=== PATIENT | male | born 1950 | race Two or more races ===

== ENCOUNTER 2020-07-02 19:14 | Inpatient (IN) | payer OTHER ==
[~2020-07-02] VITALS: Ht 162.6 cm; Wt 78.9 kg
--- NOTE | 2020-07-02 19:42 | NUR ---
patient came in to the er c/o chest pain and throbing head ache. On room air, breathing evenly and unlabored. connected to the monitor and pulse ox. kept comfortable, will continue to monitor accordingly.
--- NOTE | 2020-07-02 19:50 | NUR ---
IV access initiated and blood drawned and sent to lab
[2020-07-02 19:59] LABS: BASOPHILS % (AUTO) 0.5 % (0.0-2.0); EOSINOPHILS % (AUTO) 1.5 % (0.0-6.0); HEMATOCRIT 48 % (39-51); HEMOGLOBIN 15.7 g/dL (13.5-17.5); LYMPHOCYTES # (AUTO) 3.3 /CMM (0.8-4.8); LYMPHOCYTES % (AUTO) 37.7 % (20.0-44.0); MEAN CORPUSCULAR HGB CONC 33 g/dl (31.0-36.0); MEAN CORPUSCULAR VOLUME 86 fL (80-96); MONOCYTES # (AUTO) 0.8 /CMM (0.1-1.30); MONOCYTES % (AUTO) 9.2 % (2.0-12.0); NEUTROPHILS # (AUTO) 4.5 /CMM (1.8-8.9); NEUTROPHILS % (AUTO) 51.1 % (43.0-81.0); PLATELET COUNT (AUTO) 313 /CMM (150-450); WHITE BLOOD COUNT (AUTO) 8.8 K/uL (4.3-11.0)
[2020-07-02 20:15] LABS: CALCIUM, SERUM 8.8 mg/dL (8.5-10.1); CARBON DIOXIDE 29 mmol/L (21-32); CHLORIDE 102 mmol/L (98-107); CREATININE 0.9 mg/dL (0.6-1.3); GLUCOSE 140 mg/dL (74-106); POTASSIUM 3.7 mmol/L (3.5-5.1); SODIUM SERUM 142 mmol/L (136-145); UREA NITROGEN, BLOOD 18 mg/dL (7-18)
[2020-07-02] MEDS ORDERED: NITROGLYCERIN PACKET 1 GM PACKET TOP ONE (21:30)
[2020-07-02] MEDS ORDERED: ASPIRIN 325 MG TABLET PO ONE (21:30)
[2020-07-02] MEDS ORDERED: *INSULIN REGULAR(HUMULIN R)HUM 100 UNIT/ML VIAL SQ PRN (22:00)
[2020-07-02] MEDS ORDERED: MAGNESIUM HYDROXIDE 30 ML UDC PO PRN (22:00)
[2020-07-02] MEDS ORDERED: INSULIN REGULAR, HUMAN 100 UNIT/ML 3 ML VIAL SQ PRN (22:00)
[2020-07-02] MEDS ORDERED: MAG HYDROX/AL HYDROX/SIMETH 30 ML UDC PO PRN (22:00)
[2020-07-02] MEDS ORDERED: Z GUARD REMEDY 2 OZ OINT TP PRN (22:00)
[2020-07-02] MEDS ORDERED: DEXTROSE 50%-WATER 50 ML DISP.SYRIN IV PRN (22:00)
[2020-07-02] MEDS ORDERED: ACETAMINOPHEN 325 MG TABLET PO PRN (22:00)
[2020-07-02] MEDS ORDERED: MORPHINE SULFATE INJ 2 MG/ML DISP.SYRIN IV PRN (22:00)
[2020-07-02] MEDS ORDERED: ONDANSETRON HCL/PF 4 MG/2 ML VIAL IVP PRN (22:00)
[2020-07-02] MEDS ORDERED: HYDROCODONE/APAP 5/325MG TABLET PO PRN (22:00)
--- NOTE | 2020-07-02 22:08 | NUR ---
covid swab sent
[2020-07-02] MEDS ORDERED: NITROGLYCERIN PACKET 1 GM PACKET ONE (22:10)
[2020-07-02] MEDS ORDERED: ASPIRIN 325 MG TABLET ONE (22:10)
--- NOTE | 2020-07-02 22:46 | NUR ---
REPORT GIVEN TO ALEKSANDRA FOR VALERIA
[2020-07-02 23:30] VITALS: BP 141/79
--- NOTE | 2020-07-02 23:30 | NUR ---
TELERN RECEIVED A 69 Y/O ITALIAN SPEAKING MALE FROM ER VIA GURNEY WITH CC OF CHEST PAIN FOR 9 DAYS AND SOB FOR 6 DAYS WITH KONG AND N/V. CHEST PAIN FREE UPON ARRIVAL . V/S STABE. NO SOB 95% ON RA. STATED DOES NOT NEED TO HAVE OXYGEN. FORMING ROLL OPERATOR AT BEDSIDE. ABLE TO PROVIDE INFORMATION EXCEPT MEDICATIONS HE IS TAKING AT HOME. WILL HAVE TO FOLLOW UP IN AM MED LISTS FROM . ORIENTED TO ROOM FACILITIES. KEPT NPO FOR NOW. PULP MILL SUPERVISOR TO SEE PATIENT IN AM. ADMITTING ORDERS CARRIED OUT. CONTINUED.
--- NOTE | 2020-07-02 23:36 | NUR ---
PT TRANSPORTED TO 3RD FLOOR
[2020-07-03] MEDS: BLOOD SUGAR DIAGNOSTIC 1 EACH STRIP VI SCH ×5 (00:38→22:23)
[2020-07-03] MEDS: ENOXAPARIN SODIUM 40 MG/0.4 ML DISP.SYRIN SQ SCH ×2 (00:39→22:21)
--- NOTE | 2020-07-03 01:30 | NUR ---
TELERN MOVED TO ROOM 319 .
--- NOTE | 2020-07-03 04:15 | NUR ---
TELERN VERBALIZES HEADACHE, NORCO 1 TAB PO ADMINISTERED. BEDREST EMPHASIZED, SAFETY PRECAUTIONS INSTRUCTED, APPEARS TO UNDERSTAND CALL LIGHT WITHIN REACH
--- NOTE | 2020-07-03 05:06 | NUR ---
TELERN ASLEEP AT THIS TIME,PROVIDED QUIET ENVI. CLOSELY WATCHED. REMAINS SR N THE MONITOR
[2020-07-03 06:43] LABS: BASOPHILS # (AUTO) 0.1 /CMM (0.0-0.2); BASOPHILS % (AUTO) 0.8 % (0.0-2.0); EOSINOPHILS % (AUTO) 6.2 % (0.0-6.0); HEMATOCRIT 47 % (39-51); HEMOGLOBIN 15.6 g/dL (13.5-17.5); LYMPHOCYTES # (AUTO) 2.1 /CMM (0.8-4.8); LYMPHOCYTES % (AUTO) 27.4 % (20.0-44.0); MEAN CORPUSCULAR HGB CONC 33 g/dl (31.0-36.0); MEAN CORPUSCULAR VOLUME 93 fL (80-96); MONOCYTES # (AUTO) 0.7 /CMM (0.1-1.30); MONOCYTES % (AUTO) 9.5 % (2.0-12.0); NEUTROPHILS # (AUTO) 4.3 /CMM (1.8-8.9); NEUTROPHILS % (AUTO) 56.1 % (43.0-81.0); PLATELET COUNT (AUTO) 241 /CMM (150-450); RED BLOOD CELL COUNT(AUTO) 5.05 MIL/uL (4.5-6.0); WHITE BLOOD COUNT (AUTO) 7.7 K/uL (4.3-11.0)
[2020-07-03 07:01] LABS: CALCIUM, SERUM 8.8 mg/dL (8.5-10.1); CREATININE 0.9 mg/dL (0.6-1.3); PHOSPHORUS 4.5 mg/dL (2.5-4.9); POTASSIUM 3.9 mmol/L (3.5-5.1)
--- NOTE | 2020-07-03 07:56 | NUR ---
MS/RN OPENING NOTE RECEIVED PATIENT FROM BURLAP SPREADER NURSE. PATIENT A/O X4 DJIBOUTIAN SPEAKING. PATIENT ON ROOM AIR, TOLERATING WELL. BREATHING EVEN, NON LABORED, NO SOB NOTED. NO ACUTE DISTRESS NOTED. LAC #18 INTACT AND PATENT. SAFETY MEASURES IN PLACE, BED LOCKED AND IN LOWEST POSITION, WILL CONTINUE TO MONITOR AND ENSURE SAFETY.
[2020-07-03] MEDS ORDERED: ASPI-1420 PO (07:59)
[2020-07-03] MEDS ORDERED: HYDR25TA4 PO (07:59)
[2020-07-03] MEDS ORDERED: FLUT16SP16 (07:59)
[2020-07-03] MEDS ORDERED: LORA10TA7 PO (07:59)
[2020-07-03] MEDS ORDERED: CHOL400T PO (07:59)
[2020-07-03] MEDS ORDERED: MULT-1291 PO (07:59)
[2020-07-03] MEDS ORDERED: ATOR40TA PO (07:59)
[2020-07-03] MEDS ORDERED: OMEP20CA15 PO (07:59)
[2020-07-03] MEDS ORDERED: GABA-532 PO (07:59)
[2020-07-03 08:00] VITALS: BP 157/100
[2020-07-03] MEDS ORDERED: LORATADINE 10 MG TABLET PO PRN (09:00)
[2020-07-03] MEDS ORDERED: FLUTICASONE PROPIONATE 16 GM BOTTLE NS PRN (09:00)
[2020-07-03] MEDS ORDERED: OMEPRAZOLE 20 MG CAPSULE.DR PO SCH (09:00)
[2020-07-03] MEDS ORDERED: ASPIRIN 325 MG TABLET PO SCH (09:00)
[2020-07-03] MEDS: CHOLECALCIFEROL (VITAMIN D 3) 400 UNIT TABLET PO SCH (09:23)
[2020-07-03] MEDS: PANTOPRAZOLE 40 MG TABLET.DR PO SCH (09:23)
[2020-07-03] MEDS: MULTIVITAMINS,THERAGRAN 1 UDTAB TABLET PO SCH (09:23)
[2020-07-03] MEDS: ATORVASTATIN 40 MG TABLET PO SCH (09:23)
[2020-07-03] MEDS: GABAPENTIN 100 MG CAPSULE PO SCH ×3 (09:23→17:03)
[2020-07-03] MEDS: HYDROCHLOROTHIAZIDE 25 MG TABLET PO SCH (09:23)
[2020-07-03] MEDS: ASPIRIN EC 81 MG TABLET.DR PO SCH (09:23)
[2020-07-03] MEDS ORDERED: NITROGLYCERIN 0.4 MG/TAB BOTTLE SL ONE (09:30)
[2020-07-03 09:37] LABS: THYROID STIMULATING HORMONE 1.543 uIU/mL (0.358-3.74)
[2020-07-03] MEDS ORDERED: IV NS 0.9% 250 ML IV ONE (09:55)
[2020-07-03] MEDS ORDERED: IOHEXOL-350 100 ML VIAL IV ONE (09:55)
[2020-07-03] MEDS ORDERED: METOPROLOL TARTRATE INJ 5 MG/5 ML AMPUL ONE ×3 (09:58→10:29)
[2020-07-03] MEDS: METOPROLOL TARTRATE INJ 5 MG/5 ML AMPUL IVP PRN ×6 (10:03→10:29)
--- NOTE | 2020-07-03 10:30 | NUR ---
RN NOTES: Post CTA: Patient CTA competed and able to tolerate well, no distress noted.
[2020-07-03] MEDS: METOPROLOL TARTRATE 50 MG TABLET PO SCH ×2 (12:47→17:04)
[2020-07-03 16:00] VITALS: BP 119/82
--- NOTE | 2020-07-03 19:30 | NUR ---
TELERN AWAKED, DENIES ANY DISCOMFORTS. NO SOB. ALL NEEDS ATTENDED. SAFETY PRECAUTIONS EMPHASIZED WELL UNDERSTOOD IN SIMPLE COLOMBIAN.. SR ONT EH MONITOR CONTINUED MONITORING,
--- NOTE | 2020-07-03 19:34 | NUR ---
MS/RN CLOSING NOTE PATIENT REMAINS IN STABLE CONDITION. A/O X4 GAMBIAN SPEAKING, TOLERATING WELL. BREATHING EVEN, NON LABORED, NO SOB NOTED. PATIENT WENT FOR CT ANGIO HEART WITH 3D IMAGING, RESULTS CAME BACK NEGATIVE. LAC #18 HEP LOCK INTACT AND PATENT. SAFETY MEASURES IN PLACE. WILL ENDORSE TO AUTOMATIC GLUING MACHINE OPERATOR
[2020-07-03 20:00] VITALS: BP 121/74
[2020-07-03 20:35] VITALS: BP 121/74
--- NOTE | 2020-07-03 22:35 | NUR ---
TELERN DUE MEDS ADMINISTERED, V/S STABLE.. BS WITHIN NORMAL. DECLINE SNACKS.
[2020-07-04] VITALS: BP 110/71
[2020-07-04] MEDS: METOPROLOL TARTRATE 50 MG TABLET PO SCH ×3 (00:15→13:16)
[2020-07-04 04:00] VITALS: BP 111/69
--- NOTE | 2020-07-04 04:21 | NUR ---
TELERN REMAINS UNCHANGED, STABLE.
[2020-07-04] MEDS: BLOOD SUGAR DIAGNOSTIC 1 EACH STRIP VI SCH ×2 (06:40→11:26)
--- NOTE | 2020-07-04 07:00 | NUR ---
TELERN BS 101. AMBULATING AROUND ROOM. EAGER TO GO HOME. NO DISCOMFORTS MADE.
--- NOTE | 2020-07-04 07:30 | NUR ---
CELL OPERATOR OPENING NOTES BEDSIDE ENDORSEMENT DONE. PATIENT IS IN BED AWAKE AND VERBALLY RESPONSIVE. A/O X4, VATICAN CITIZEN-SPEAKING, UNDERSTANDS SOME MALAWIAN. BREATHING EVEN AND UNLABORED, TOLERATING ROOM AIR. ON TELE MONITORING, READING OF SR, HR AT 70'S, NO CARDIAC DISTRESS NOTED. PATIENT ABLE TO AMBULATE W/ STEADY GAIT. IN LINE ON LAC #18 INTACT AND PATENT. SAFETY PRECS IN PLACE: BED LOCKED AND ON LOWEST POSITION, SR UP X2, CALL LIGHT W/IN REACH. WILL CONTINUE TO MONITOR.
[2020-07-04] MEDS ORDERED: OMEP20CA15 PO (07:57)
[2020-07-04 08:00] VITALS: BP 127/84
[2020-07-04] MEDS: ATORVASTATIN 40 MG TABLET PO SCH (08:32)
[2020-07-04] MEDS: ASPIRIN EC 81 MG TABLET.DR PO SCH (08:32)
[2020-07-04] MEDS: GABAPENTIN 100 MG CAPSULE PO SCH ×2 (08:32→13:16)
[2020-07-04] MEDS: CHOLECALCIFEROL (VITAMIN D 3) 400 UNIT TABLET PO SCH (08:32)
[2020-07-04] MEDS: MULTIVITAMINS,THERAGRAN 1 UDTAB TABLET PO SCH (08:32)
[2020-07-04] MEDS: HYDROCHLOROTHIAZIDE 25 MG TABLET PO SCH (08:33)
[2020-07-04] MEDS: PANTOPRAZOLE 40 MG TABLET.DR PO SCH (08:33)
[2020-07-04 08:35] LABS: BASOPHILS # (AUTO) 0.1 /CMM (0.0-0.2); BASOPHILS % (AUTO) 0.6 % (0.0-2.0); EOSINOPHILS % (AUTO) 2.1 % (0.0-6.0); HEMATOCRIT 47 % (39-51); HEMOGLOBIN 15.9 g/dL (13.5-17.5); LYMPHOCYTES # (AUTO) 3.5 /CMM (0.8-4.8); LYMPHOCYTES % (AUTO) 36.7 % (20.0-44.0); MEAN CORPUSCULAR HGB CONC 34 g/dl (31.0-36.0); MEAN CORPUSCULAR VOLUME 85 fL (80-96); MONOCYTES # (AUTO) 0.7 /CMM (0.1-1.30); MONOCYTES % (AUTO) 7.9 % (2.0-12.0); NEUTROPHILS % (AUTO) 52.7 % (43.0-81.0); PLATELET COUNT (AUTO) 299 /CMM (150-450); RED BLOOD CELL COUNT(AUTO) 5.61 MIL/uL (4.5-6.0); WHITE BLOOD COUNT (AUTO) 9.4 K/uL (4.3-11.0)
[2020-07-04 08:36] LABS: CALCIUM, SERUM 9.1 mg/dL (8.5-10.1); CREATININE 0.9 mg/dL (0.6-1.3); POTASSIUM 3.5 mmol/L (3.5-5.1)
[2020-07-04 13:16] VITALS: BP 130/79
--- NOTE | 2020-07-04 14:18 | NUR ---
PSYCHOTHERAPIST SOCIAL WORKER NOTES PATIENT WAS SEEN BY DR. BARTLETT TODAY W/ ORDER FOR DISCHARGE TO HOME. PATIENT IS AWAKE AND VERBALLY RESPONSIVE, A/O X4, COMORAN-SPEAKING BUT UNDERSTANDS SOME EAST TIMORESE. DISCHARGE INSTRUCTIONS GIVEN TO SON, TAMMY, AND TO PATIENT VIA STITCHER HAND, SKIRT TRIMMER NARESH. PATIENT UNDERSTANDS DISCHARGE INSTRUCTIONS AND EDUCATION. SKIN CHECK DONE, NO ISSUES NOTED. PATIENT SIGNED BELONGINGS LIST AND DISCHARGE FORMS. BELONGINGS ACCOUNTED FOR AND SENT HOME WITH PATIENT. NAME ARMBAND AND IV LINE REMOVED. ACCOMPANIED PATIENT TO THE LOBBY VIA WHEELCHAIR AND WAS PICKED UP BY AND FRIEND VIA PRIVATE CAR. CHARGE NURSE AND MD AWARE OF DISCHARGE.
== END 2020-07-04 14:19 | disposition home or self-care (01) | DRG 392 ==
LOC: ER 19:15 → TELE 22:47 → MED 07-04 14:00
PROVIDERS: ADMIT Internal Medicine; ATTEND Family Medicine
DX: K21.9 Gastro-esophageal reflux disease without esophagitis (principal); I10 Essential (primary) hypertension; E78.5 Hyperlipidemia, unspecified; I25.10 Atherosclerotic heart disease of native coronary artery without angina pectoris; E66.9 Obesity, unspecified; E11.65 Type 2 diabetes mellitus with hyperglycemia; Z86.73 Personal history of transient ischemic attack (TIA), and cerebral infarction without residual deficits; Z79.899 Other long term (current) drug therapy; K46.9 Unspecified abdominal hernia without obstruction or gangrene; Z96.611 Presence of right artificial shoulder joint
CPT/HCPCS: 36415; 71045-TC; 75574; 80048-TC; 80061-TC; 82962-TC; 83735-TC; 83880; 84100-TC; 84439-TC; 84443-TC; 84484-TC; 85025-TC; 87081-TC; 93307-TC; C9803; G0378; J1650; J1815; J3490; J7050; Q9967

== ENCOUNTER 2022-11-03 01:05 | Inpatient (IN) | payer OTHER ==
[~2022-11-03] VITALS: Ht 160 cm; Wt 77.6 kg
[~2022-11-03 01:05] MED LIST: ASPI-1420 PO; ATOR40TA PO; CHOL400T PO; FLUT16SP16; GABA-532 PO; HYDR25TA4 PO; LORA10TA7 PO; MULT-1291 PO; OMEP20CA15 PO
--- NOTE | 2022-11-03 02:08 | NUR ---
BIBWIFE FROM HOME C/O ABD PAIN, H/A +N/V/D X3 DAYS. TAKES TYLENOL WITH LITTLE RELIEF. PT A/OX4. TOLERATING R/A WELL WITH NO RESP DISTRESS. PT AMBULATORY WITH STEADY GAIT. SAFETY MEASURES IN PLACE.
[2022-11-03] MEDS ORDERED: ONDANSETRON HCL/PF 4 MG/2 ML VIAL ONE (02:15)
[2022-11-03] MEDS ORDERED: MORPHINE SULFATE INJ 4 MG/ML DISP.SYRIN ONE (02:16)
[2022-11-03] MEDS ORDERED: MORPHINE SULFATE INJ 2 MG/ML DISP.SYRIN IV ONE (02:30)
[2022-11-03] MEDS ORDERED: IV NS 0.9% 1,000 ML BAG IV ONE (02:30)
[2022-11-03] MEDS ORDERED: ONDANSETRON HCL/PF 4 MG/2 ML VIAL IVP ONE (02:30)
--- NOTE | 2022-11-03 02:30 | NUR ---
RESEARCH SCHOLAR AT PT'S BEDSIDE
--- NOTE | 2022-11-03 02:30 | NUR ---
RFA #18G S/L BLOOD AND URINE SWAB COLLECTED AND SENT TO LAB
--- NOTE | 2022-11-03 02:49 | NUR ---
PT RETURNED TO ER BED [address]
[2022-11-03 02:52] LABS: BASOPHILS # (AUTO) 0.3 K/uL (0.0-0.2); BASOPHILS % (AUTO) 3.4 % (0.0-2.0); HEMATOCRIT 45 % (39-51); HEMOGLOBIN 15.2 g/dL (13.5-17.5); LYMPHOCYTES # (AUTO) 0.9 K/uL (0.8-4.8); LYMPHOCYTES % (AUTO) 12.3 % (20.0-44.0); MEAN CORPUSCULAR HGB CONC 33 g/dl (31.0-36.0); MEAN CORPUSCULAR VOLUME 85 fL (80-96); MONOCYTES # (AUTO) 0.5 K/uL (0.1-1.30); MONOCYTES % (AUTO) 6.7 % (2.0-12.0); NEUTROPHILS # (AUTO) 5.8 K/uL (1.8-8.9); NEUTROPHILS % (AUTO) 77.6 % (43.0-81.0); PLATELET COUNT (AUTO) 227 K/uL (150-450); RED BLOOD CELL COUNT(AUTO) 5.37 MIL/uL (4.5-6.0); WHITE BLOOD COUNT (AUTO) 7.4 K/uL (4.3-11.0)
[2022-11-03 02:59] LABS: BILIRUBIN,URINE 1+ (NEGATIVE); COLOR,URINE YELLOW (YELLOW); LEUKOCYTE ESTERASE ,URINE NEGATIVE (NEGATIVE); NITRITE, URINE NEGATIVE (NEGATIVE); PROTEIN,URINE 2+ mg/dl (NEGATIVE); UGLUCOSE NEGATIVE (NEGATIVE)
[2022-11-03 03:08] LABS: ALANINE AMINOTRANSFERASE 49 U/L (12-78); ALKALINE PHOSPHATASE 85 U/L (46-116); ASPARTATE AMINOTRANSFERASE 35 U/L (15-37); BILIRUBIN,DIRECT 0.1 mg/dL (0.0-0.2); BILIRUBIN,TOTAL 0.4 mg/dL (0.2-1.0); CALCIUM, SERUM 8.6 mg/dL (8.5-10.1); CHLORIDE 103 mmol/L (98-107); CREATININE 0.8 mg/dL (0.6-1.3); GLUCOSE 124 mg/dL (74-106); LIPASE 88 U/L (73-393); SODIUM SERUM 139 mmol/L (136-145); TOTAL PROTEIN, SERUM 6.9 g/dL (6.4-8.2); UREA NITROGEN, BLOOD 15 mg/dL (7-18)
[2022-11-03 03:11] LABS: CARBON DIOXIDE 25 mmol/L (21-32)
[2022-11-03 03:20] LABS: ALBUMIN 3.6 g/dL (3.4-5.0)
[2022-11-03 03:33] LABS: POTASSIUM 2.6 mmol/L (3.5-5.1)
--- NOTE | 2022-11-03 03:40 | NUR ---
COVID ANTIGEN SWAB COLLECTED AND SENT TO LAB
[2022-11-03 03:45] LABS: BACTERIA,URINE Rare /HPF (None Seen); MUCUS,URINE Moderate /LPF (None Seen); SQUAMOUS EPITHELIAL CELL,UR Rare /HPF (None Seen)
[2022-11-03] MEDS ORDERED: POTASSIUM CL. PREMIX PERIPHER. 50 ML ONE ×4 (03:52→05:50)
[2022-11-03] MEDS ORDERED: POTASSIUM CHLORIDE 10 MEQ/50 ML PREMIXED IVPB FOR PERIPHERAL LINE IV ONE (04:00)
--- NOTE | 2022-11-03 04:04 | NUR ---
BAG 1 OUT OF 4 POTASSIUM CHLORIDE WAS ADMINISTERED.
[2022-11-03] MEDS ORDERED: POTASSIUM CHLORIDE 20 MEQ TAB.PRT.SR PO ONE ×3 (04:15→11:00)
[2022-11-03] MEDS ORDERED: ONDANSETRON HCL/PF 4 MG/2 ML VIAL IVP PRN (05:00)
[2022-11-03] MEDS ORDERED: HYDROMORPHONE INJ 2 MG/ML DISP.SYRIN IV PRN (05:00)
[2022-11-03] MEDS ORDERED: HYDROCODONE/APAP 10/325MG TABLET PO PRN (05:00)
[2022-11-03] MEDS ORDERED: MAG HYDROX/AL HYDROX/SIMETH 30 ML UDC PO PRN (05:00)
[2022-11-03] MEDS ORDERED: ACETAMINOPHEN 325 MG TABLET PO PRN (05:00)
[2022-11-03] MEDS ORDERED: Z GUARD REMEDY 4 OZ OINT TP PRN (05:00)
[2022-11-03] MEDS ORDERED: FLUTICASONE PROPIONATE 16 GM BOTTLE NS PRN (05:00)
[2022-11-03] MEDS ORDERED: ZOLPIDEM TARTRATE 5 MG TABLET PO PRN (05:00)
[2022-11-03] MEDS ORDERED: MAGNESIUM HYDROXIDE 30 ML UDC PO PRN (05:00)
--- NOTE | 2022-11-03 05:05 | NUR ---
2ND BAG OF KCL 10MEQ/50ML STARTED.
--- NOTE | 2022-11-03 05:05 | NUR ---
Paola moreno in ED - 11/03/22 at 0559 by FLOWER 2ND BAG OF KCL 50MEQ/50ML STARTED.
--- NOTE | 2022-11-03 05:11 | NUR ---
118-1 AFTER SHIFT CHANGE
--- NOTE | 2022-11-03 05:25 | NUR ---
STUDENT FINANCE ADVISOR AT BEDSIDE
[2022-11-03 05:34] LABS: ALBUMIN 3.2 g/dL (3.4-5.0); BILIRUBIN,TOTAL 0.3 mg/dL (0.2-1.0); CREATININE 0.9 mg/dL (0.6-1.3); POTASSIUM 3.3 mmol/L (3.5-5.1); TOTAL PROTEIN, SERUM 6.2 g/dL (6.4-8.2)
--- NOTE | 2022-11-03 05:58 | NUR ---
3RD BAG OF KCL 10MEQ/50ML STARTED
--- NOTE | 2022-11-03 07:06 | NUR ---
4TH BAG OF KCL 10MEQ/50ML STARTED
--- NOTE | 2022-11-03 07:32 | NUR ---
REPORT GIVEN TO DEDE CRAMER FOR VALERIA
--- NOTE | 2022-11-03 07:35 | NUR ---
rn notes: pt came from ER, alert and oriented x 4, Romanian speaking, not in any distress, asked to walk to the bathroom, will assess and monitor
[2022-11-03 08:00] VITALS: BP 152/85
[2022-11-03] MEDS: ASPIRIN EC 81 MG TABLET.DR PO SCH (09:19)
[2022-11-03] MEDS: PANTOPRAZOLE 40 MG VIAL IV SCH (09:19)
[2022-11-03] MEDS: GABAPENTIN 100 MG CAPSULE PO SCH ×3 (09:20→17:12)
[2022-11-03] MEDS: CHOLECALCIFEROL (VITAMIN D 3) 400 UNIT TABLET PO SCH (09:20)
[2022-11-03] MEDS: ATORVASTATIN 40 MG TABLET PO SCH (09:20)
[2022-11-03] MEDS: MULTIVITAMINS,THERAGRAN 1 UDTAB TABLET PO SCH (09:20)
[2022-11-03] MEDS ORDERED: DEXTROSE 50%-WATER 50 ML DISP.SYRIN IV PRN (11:00)
[2022-11-03] MEDS: IV 1/2NS 1000 ML 1,000 ML IV PRN ×2 (11:19→22:21)
[2022-11-03] MEDS: BLOOD SUGAR DIAGNOSTIC 1 EACH STRIP IN SCH ×3 (11:32→21:25)
[2022-11-03 12:00] VITALS: BP 134/82
--- NOTE | 2022-11-03 13:40 | NUR ---
RN NOTE PATIENT REQUESTING TO BE PUT ON DNR/DNI, PATIENT ALERT, ORIENTED X4, AT BEDSIDE. PATIENT SIGNED POLST DNR Addendum: 11/03/22 at 1342 by MANDA HUIZAR RN GERMAIN SAEED NP NOTIFIED
[2022-11-03 16:00] VITALS: BP 127/77
--- NOTE | 2022-11-03 19:34 | NUR ---
RN CLOSING NOTES PATIENT IN BED, ALERT, ORIENTED X4. NO SOB NOTED, NO PAIN OR S/SX OF DISCOMFORT NOTED. ON TELEMONITOR SR 78, ON ROOM AIR, SKIN INTACT, NO WOUNDS OR REDNESS NOTES. IV PATENT AND FLUSHING WELL, ALL NEEDS MET, ALL ORDER MEDICATIONS GIVEN ORDER. BED IN LOWEST AND LOCKED POSITION, SAFETY MEASURES IN PLACE AND IMPLEMENTED, WILL ENDORSE TO NEXT SHIFT RN.
[2022-11-03 20:41] VITALS: BP 134/75
[2022-11-03] MEDS: INSULIN REGULAR, HUMAN 100 UNIT/ML 3 ML VIAL SQ PRN (21:25)
--- NOTE | 2022-11-03 21:26 | NUR ---
ACCUCHECK Bld glucose 89mg/dl. Hold per level ordered. Patient on Clear liquid diet. Offered snack, patient no appetite to eat. Denies N/V, no c/o abd pain.
[2022-11-04 04:00] VITALS: BP 116/80
--- NOTE | 2022-11-04 06:13 | NUR ---
END OF SHIFT REPORT Patient in bed, Alert Oriented x4. Sinus rhythm in the Tele monitor HR 68. RFA IV line intact, IVF continuous. On Clear liquids diet. Denies N/V no c/o abd pain. Ambulating independently. Still with some liquid stool. Stool Cdiff pending result. Potassium level trending up to normal. JEFF Martinez assist with Nepali translation. Will endorse to oncoming RN.
[2022-11-04 06:49] LABS: BASOPHILS % (AUTO) 0.5 % (0.0-2.0); EOSINOPHILS % (AUTO) 0.5 % (0.0-6.0); HEMATOCRIT 42 % (39-51); HEMOGLOBIN 13.7 g/dL (13.5-17.5); LYMPHOCYTES # (AUTO) 1.9 K/uL (0.8-4.8); LYMPHOCYTES % (AUTO) 41.3 % (20.0-44.0); MEAN CORPUSCULAR HGB CONC 33 g/dl (31.0-36.0); MEAN CORPUSCULAR VOLUME 86 fL (80-96); MONOCYTES # (AUTO) 0.7 K/uL (0.1-1.30); MONOCYTES % (AUTO) 15.2 % (2.0-12.0); NEUTROPHILS % (AUTO) 42.5 % (43.0-81.0); PLATELET COUNT (AUTO) 201 K/uL (150-450); RED BLOOD CELL COUNT(AUTO) 4.88 MIL/uL (4.5-6.0); WHITE BLOOD COUNT (AUTO) 4.6 K/uL (4.3-11.0)
[2022-11-04 07:01] LABS: CALCIUM, SERUM 8.3 mg/dL (8.5-10.1); CREATININE 0.7 mg/dL (0.6-1.3); MAGNESIUM 1.9 mg/dL (1.8-2.4); PHOSPHORUS 2.8 mg/dL (2.5-4.9); POTASSIUM 3.5 mmol/L (3.5-5.1)
--- NOTE | 2022-11-04 07:10 | NUR ---
RN OPEN TELE NOTE: ALERT TIMES TIMES 4. MOIST ORAL MUCOSA. UNLABORED BREATHING AT ROOM AIR. SATING AT 96 %. FOOD MIXER SINUS RHYTHM 79 HR. RIGHT FOREARM IV 20 G WITH 1/2 NS AT 90 ML/HR. CONTINUES ON CLEAR LIQUID DIET. HOB ELEVATED. BILATERAL HALF SIDE RAILS UP X2, BED IN LOW POSITION, LOCKED, EXIT ALARM ON. CALL LIGHT IN REACH.
[2022-11-04] MEDS: BLOOD SUGAR DIAGNOSTIC 1 EACH STRIP IN SCH ×4 (07:42→22:03)
[2022-11-04 08:00] VITALS: BP 126/85
[2022-11-04] MEDS: ASPIRIN EC 81 MG TABLET.DR PO SCH (09:44)
[2022-11-04] MEDS: PANTOPRAZOLE 40 MG VIAL IV SCH (09:44)
[2022-11-04] MEDS: ATORVASTATIN 40 MG TABLET PO SCH (09:45)
[2022-11-04] MEDS: MULTIVITAMINS,THERAGRAN 1 UDTAB TABLET PO SCH (09:45)
[2022-11-04] MEDS: CALCIUM CARBONATE (1250) 500 MG TABLET PO SCH (09:45)
[2022-11-04] MEDS: GABAPENTIN 100 MG CAPSULE PO SCH ×3 (09:45→17:55)
[2022-11-04] MEDS: CHOLECALCIFEROL (VITAMIN D 3) 400 UNIT TABLET PO SCH (09:46)
[2022-11-04] MEDS: IV 1/2NS 1000 ML 1,000 ML IV PRN ×2 (09:56→22:39)
[2022-11-04] MEDS ORDERED: SERT25TA5 PO (11:08)
[2022-11-04] MEDS ORDERED: METF-440 PO (11:08)
[2022-11-04 12:00] VITALS: BP 126/72
[2022-11-04 16:00] VITALS: BP 116/68
--- NOTE | 2022-11-04 18:50 | NUR ---
RN CLOSING NOTE: ALERT TIMES TIMES 4, SOUTH AFRICAN SPEAKING. MOIST ORAL MUCOSA. UNLABORED BREATHING AT ROOM AIR. SATING AT 96 %. SCAFFOLDING HELPER SINUS RHYTHM. RIGHT FOREARM IV 20 G WITH 1/2 NS AT 90 ML/HR. CONTINUES ON CLEAR LIQUID DIET. HOB ELEVATED. BILATERAL HALF SIDE RAILS UP X2, BED IN LOW POSITION, LOCKED, EXIT ALARM ON. CALL LIGHT IN REACH. HAD 3 EPISODES OF DIARRHEA IN AM ONLY. NO FURTHER EPISODES AT THIS TIME. VISITED BY .
--- NOTE | 2022-11-04 19:30 | NUR ---
MS RN OPENING NOTE RECEIVED PT SITTING IN BED. A/O X4, ALBANIAN SPEAKING, ABLE TO MAKE NEEDS KNOWN. ON RA WITH NO SOB OR LABORED BREATHING. IV ACCESS RFA #20G WITH 1/2 NS AT 90 ML/HR. ON CARDIAC DIET. HOB ELEVATED. SAFETY PRECAUTIONS IN PLACE: BED IN LOW POSITION, LOCKED, EXIT ALARM ON. SIDE RAILS UP X2. CALL LIGHT AND TRAY TABLE WITHIN REACH. WILL CONTINUE TO MONITOR AND ASSIST.
[2022-11-04 20:00] VITALS: BP 139/70
[2022-11-04] MEDS: INSULIN REGULAR, HUMAN 100 UNIT/ML 3 ML VIAL SQ PRN (22:03)
[2022-11-05 04:00] VITALS: BP 118/73
[2022-11-05 06:01] LABS: BASOPHILS % (AUTO) 0.6 % (0.0-2.0); EOSINOPHILS % (AUTO) 2.3 % (0.0-6.0); HEMATOCRIT 41 % (39-51); HEMOGLOBIN 13.6 g/dL (13.5-17.5); LYMPHOCYTES # (AUTO) 2.5 K/uL (0.8-4.8); LYMPHOCYTES % (AUTO) 50.8 % (20.0-44.0); MEAN CORPUSCULAR HGB CONC 33 g/dl (31.0-36.0); MEAN CORPUSCULAR VOLUME 84 fL (80-96); MONOCYTES # (AUTO) 0.6 K/uL (0.1-1.30); MONOCYTES % (AUTO) 12.3 % (2.0-12.0); NEUTROPHILS # (AUTO) 1.7 K/uL (1.8-8.9); PLATELET COUNT (AUTO) 216 K/uL (150-450); RED BLOOD CELL COUNT(AUTO) 4.85 MIL/uL (4.5-6.0); WHITE BLOOD COUNT (AUTO) 4.9 K/uL (4.3-11.0)
[2022-11-05 06:07] LABS: CALCIUM, SERUM 8.6 mg/dL (8.5-10.1); CREATININE 0.8 mg/dL (0.6-1.3); MAGNESIUM 1.8 mg/dL (1.8-2.4); PHOSPHORUS 3.2 mg/dL (2.5-4.9); POTASSIUM 3.5 mmol/L (3.5-5.1)
[2022-11-05] MEDS: BLOOD SUGAR DIAGNOSTIC 1 EACH STRIP IN SCH ×2 (07:20→11:11)
--- NOTE | 2022-11-05 07:48 | NUR ---
MS RN CLOSING NOTE PT SITTING IN BED, EATING BREAKFAST AT THIS TIME. A/O X4, VIETNAMESE SPEAKING, ABLE TO MAKE NEEDS KNOWN. STABLE ON RA WITH NO SOB OR LABORED BREATHING. IV ACCESS RFA #20G WITH 1/2 NS AT 90 ML/HR. CARDIAC DIET MAINTAINED. HOB ELEVATED. ALL CARE PROVIDED AND MEDS TOLERATED WELL. PT WITH NO BOWEL MOVEMENT THROUGHOUT SHIFT. SAFETY PRECAUTIONS MAINTAINED: BED IN LOW POSITION, LOCKED, EXIT ALARM ON. SIDE RAILS UP X2. CALL LIGHT AND TRAY TABLE WITHIN REACH. WILL ENDORSE VALERIA TO DAY SHIFT NURSE..
[2022-11-05] MEDS: MULTIVITAMINS,THERAGRAN 1 UDTAB TABLET PO SCH (07:53)
[2022-11-05] MEDS: ATORVASTATIN 40 MG TABLET PO SCH (07:53)
[2022-11-05] MEDS: CHOLECALCIFEROL (VITAMIN D 3) 400 UNIT TABLET PO SCH (07:54)
[2022-11-05] MEDS: GABAPENTIN 100 MG CAPSULE PO SCH (07:54)
[2022-11-05] MEDS: ASPIRIN EC 81 MG TABLET.DR PO SCH (07:54)
[2022-11-05] MEDS: CALCIUM CARBONATE (1250) 500 MG TABLET PO SCH (07:56)
[2022-11-05 08:00] VITALS: BP 147/69
[2022-11-05] MEDS ORDERED: PANTOPRAZOLE 40 MG/PACK PACK PO SCH (09:00)
[2022-11-05] MEDS ORDERED: CALC500T52 PO (10:40)
--- NOTE | 2022-11-05 12:34 | NUR ---
PATIENT IS DISCHARGED TO HOME WITH SPOUSE, DISCHARGE PACKET WAS GIVEN TO PATIENT, PATIENT IS IN STABLE CONDITION, NO SIGNS OF IN DISTRESS, IV LINE WAS DISCONTINUE.
== END 2022-11-05 12:32 | disposition home or self-care (01) | DRG 392 ==
LOC: ER 01:09 → TELE1 05:12 → MEDSG1 11-04 11:40
PROVIDERS: ADMIT Nurse Practitioner Acute Care; ATTEND Nurse Practitioner Acute Care
DX: A08.4 Viral intestinal infection, unspecified (principal); E44.1 Mild protein-calorie malnutrition; E87.6 Hypokalemia; E11.9 Type 2 diabetes mellitus without complications; I10 Essential (primary) hypertension; Z68.30 Body mass index [BMI] 30.0-30.9, adult; E83.51 Hypocalcemia; E66.9 Obesity, unspecified; E78.5 Hyperlipidemia, unspecified; E88.09 Other disorders of plasma-protein metabolism, not elsewhere classified; Z79.899 Other long term (current) drug therapy; Z86.73 Personal history of transient ischemic attack (TIA), and cerebral infarction without residual deficits; Z20.822 Contact with and (suspected) exposure to COVID-19
CPT/HCPCS: 36415; 71045-TC; 80048-TC; 80053-TC; 80076-TC; 81001; 82962-TC; 83690-TC; 83735-TC; 84100-TC; 84484-TC; 85025-TC; 85730-TC; 87081-TC; A4223; C9113; C9803; G0378; J1815; J2270; J2405; J3480; J3490; J7030

== ENCOUNTER 2024-10-31 09:38 | Emergency (ER) | payer OTHER, MEDICAID ==
[~2024-10-31] VITALS: Ht 157.5 cm; Wt 79.4 kg
[~2024-10-31 09:38] MED LIST changes: +CALC500T52 PO; +METF-440 PO; +SERT25TA5 PO
[2024-10-31] MEDS ORDERED: MORPHINE SULFATE INJ 4 MG/ML DISP.SYRIN ONE (10:05)
[2024-10-31] MEDS: MORPHINE SULFATE INJ 2 MG/ML DISP.SYRIN IM ONE (10:10)
[2024-10-31] MEDS ORDERED: NAPR-1009 PO (11:21)
[2024-10-31 11:36] VITALS: BP 145/88; TEMP 98.6; O2SAT 98
== END 2024-10-31 11:37 | disposition home or self-care (01) ==
LOC: ER 09:54
DX: M54.50 Low back pain, unspecified (principal); M25.552 Pain in left hip; I10 Essential (primary) hypertension; E11.9 Type 2 diabetes mellitus without complications; Z79.82 Long term (current) use of aspirin; Z79.84 Long term (current) use of oral hypoglycemic drugs; Z79.899 Other long term (current) drug therapy; Z86.73 Personal history of transient ischemic attack (TIA), and cerebral infarction without residual deficits
CPT/HCPCS: 99285; 74176; 96372; J2270

== ENCOUNTER 2024-11-02 17:10 | Emergency (ER) | payer MEDICARE, MEDICAID ==
[~2024-11-02] VITALS: Ht 167.6 cm; Wt 79.4 kg
[~2024-11-02 17:10] MED LIST changes: +NAPR-1009 PO
[2024-11-02 17:20] VITALS: TEMP 97.8
[2024-11-02] MEDS ORDERED: KETOROLAC TROMETHAMINE 15 MG/ML VIAL ONE (18:19)
[2024-11-02] MEDS ORDERED: ACETAMINOPHEN ES 500 MG TABLET ONE (18:19)
[2024-11-02] MEDS ORDERED: LIDOCAINE 5% (PATCH) 1 EA PATCH TP ONE (18:19)
[2024-11-02] MEDS ORDERED: CYCLOBENZAPRINE 10 MG TABLET ONE (18:20)
[2024-11-02] MEDS: KETOROLAC TROMETHAMINE 15 MG/ML VIAL IM ONE (18:30)
[2024-11-02] MEDS: CYCLOBENZAPRINE 10 MG TABLET PO ONE (18:32)
[2024-11-02] MEDS: ACETAMINOPHEN ES 500 MG TABLET PO ONE (18:32)
[2024-11-02] MEDS: LIDOCAINE 5% (PATCH) 1 EA PATCH TP SCH (18:32)
[2024-11-02] MEDS ORDERED: ACET-2605 PO (20:03)
[2024-11-02] MEDS ORDERED: CYCL10TA9 PO (20:03)
[2024-11-02] MEDS ORDERED: PRED50TA PO (20:03)
[2024-11-02] MEDS ORDERED: MORPHINE SULFATE INJ 4 MG/ML DISP.SYRIN ONE (20:27)
[2024-11-02] MEDS: MORPHINE SULFATE INJ 2 MG/ML DISP.SYRIN IM ONE (20:30)
[2024-11-02 21:23] VITALS: BP 140/85; O2SAT 99
== END 2024-11-02 21:24 | disposition home or self-care (01) ==
LOC: ER 17:19
DX: M54.42 Lumbago with sciatica, left side (principal); I10 Essential (primary) hypertension; E11.9 Type 2 diabetes mellitus without complications; Z79.82 Long term (current) use of aspirin; Z79.84 Long term (current) use of oral hypoglycemic drugs; Z79.899 Other long term (current) drug therapy; Z86.73 Personal history of transient ischemic attack (TIA), and cerebral infarction without residual deficits
CPT/HCPCS: 99284; 96372 ×2; J1885; J2270

== ENCOUNTER 2024-11-19 13:11 | Emergency (ER) | payer MEDICARE, MEDICAID ==
[~2024-11-19] VITALS: Ht 167.6 cm; Wt 75.3 kg
[~2024-11-19 13:11] MED LIST changes: +ACET-2605 PO; +CYCL10TA9 PO; +PRED50TA PO
[2024-11-19] MEDS ORDERED: MAG HYDROX/AL HYDROX/SIMETH 30 ML UDC ONE (13:25)
[2024-11-19] MEDS ORDERED: ONDANSETRON HCL/PF 4 MG/2 ML VIAL ONE (13:25)
[2024-11-19] MEDS ORDERED: MORPHINE SULFATE INJ 4 MG/ML DISP.SYRIN ONE (13:26)
[2024-11-19] MEDS ORDERED: LIDOCAINE VISCOUS 2% UD 15 ML UDC ONE (13:26)
[2024-11-19] MEDS ORDERED: FAMOTIDINE/PF INJ 20 MG/2 ML VIAL IV ONE (13:26)
[2024-11-19] MEDS: MAG HYDROX/AL HYDROX/SIMETH 30 ML UDC PO ONE (13:30)
[2024-11-19] MEDS: IV NS 0.9% 1,000 ML BAG IV ONE (13:30)
[2024-11-19] MEDS: MORPHINE SULFATE INJ 2 MG/ML DISP.SYRIN IV ONE (13:30)
[2024-11-19] MEDS: ONDANSETRON HCL/PF 4 MG/2 ML VIAL IVP ONE (13:30)
[2024-11-19] MEDS: FAMOTIDINE/PF INJ 20 MG/2 ML VIAL IV ONE (13:30)
[2024-11-19] MEDS: LIDOCAINE VISCOUS 2% UD 15 ML UDC MM ONE (13:30)
[2024-11-19] MEDS ORDERED: IOHEXOL-350 100 ML VIAL IV ONE (14:25)
[2024-11-19 14:29] LABS: BASOPHILS % (AUTO) 0.4 % (0.0-2.0); EOSINOPHILS # (AUTO) 0.1 K/uL (0.0-0.7); EOSINOPHILS % (AUTO) 0.5 % (0.0-6.0); HEMATOCRIT 49 % (39-51); HEMOGLOBIN 16.7 g/dL (13.5-17.5); LYMPHOCYTES # (AUTO) 2.2 K/uL (0.8-4.8); LYMPHOCYTES % (AUTO) 20.7 % (20.0-44.0); MEAN CORPUSCULAR HEMOGLOBIN 29 PG (26.0-33.0); MEAN CORPUSCULAR HGB CONC 34 g/dl (31.0-36.0); MEAN CORPUSCULAR VOLUME 85 fL (80-96); MONOCYTES # (AUTO) 0.7 K/uL (0.1-1.30); MONOCYTES % (AUTO) 6.3 % (2.0-12.0); NEUTROPHILS # (AUTO) 7.8 K/uL (1.8-8.9); NEUTROPHILS % (AUTO) 72.1 % (43.0-81.0); PLATELET COUNT (AUTO) 319 K/uL (150-450); RED CELL DISTRIBUTION WIDTH 14.5 % (11.5-15.0); WHITE BLOOD COUNT (AUTO) 10.8 K/uL (4.3-11.0)
[2024-11-19 14:39] LABS: CALCIUM, SERUM 9.4 mg/dL (8.5-10.1); CREATININE 0.7 mg/dL (0.6-1.3); POTASSIUM 3.5 mmol/L (3.5-5.1)
[2024-11-19 14:45] LABS: ALBUMIN 3.5 g/dL (3.4-5.0); BILIRUBIN,DIRECT 0.1 mg/dL (0.0-0.2); BILIRUBIN,TOTAL 0.7 mg/dL (0.2-1.0); TOTAL PROTEIN, SERUM 7.1 g/dL (6.4-8.2)
[2024-11-19] MEDS ORDERED: PANT40TA49 PO (15:49)
[2024-11-19] MEDS ORDERED: FAMO20TA80 PO (15:49)
[2024-11-19] MEDS ORDERED: CYCL5TAB PO (15:50)
[2024-11-19] MEDS ORDERED: ACET-2030 PO (15:50)
[2024-11-19] MEDS ORDERED: AMOX500C2 PO (15:52)
[2024-11-19] MEDS ORDERED: CLAR-45 PO (15:52)
[2024-11-19 16:55] VITALS: BP 149/89; TEMP 98.3; O2SAT 99
== END 2024-11-19 16:56 | disposition home or self-care (01) ==
LOC: ER 13:17
DX: M54.42 Lumbago with sciatica, left side (principal); R10.84 Generalized abdominal pain; I10 Essential (primary) hypertension; E11.9 Type 2 diabetes mellitus without complications; E78.5 Hyperlipidemia, unspecified; Z79.52 Long term (current) use of systemic steroids; Z79.82 Long term (current) use of aspirin; Z79.84 Long term (current) use of oral hypoglycemic drugs; Z79.899 Other long term (current) drug therapy; Z86.73 Personal history of transient ischemic attack (TIA), and cerebral infarction without residual deficits
CPT/HCPCS: 99285; 96374; 96361; 96375; 93005; 74174; 85025; 80048; 83690; 80076; 36415; 82962; J2270; J1308; J2405; J7030; Q9967